=== PATIENT | male | born 1995 | race American Indian/Alaskan Native ===

== ENCOUNTER 2017-05-08 10:01 | Emergency (ER) | payer SELFPAY ==
[2017-05-08 10:36] VITALS: BP 135/76
[2017-05-08 11:13] LABS: Bilirubin,Urine NEG (Negative); Blood,Urine NEG (Negative); Color,Urine Yellow (Yellow); Mucus,Urine FEW /HPF; Nitrite,Urine NEG (Negative); Protein,Urine <15 mg/dL mg/dL (Negative)
[2017-05-08] MEDS ORDERED: ZITHROMAX PO ONE (12:03)
[2017-05-08] MEDS ORDERED: ROCEPHIN IM ONE (12:03)
[2017-05-08] MEDS ORDERED: XYLOCAINE 1% MPF 5 mL INFILTRATI ONE (12:03)
--- NOTE | 2017-05-08 12:03 | Emergency Department Report ---
ED Male HPI - General Chief complaint: Urogenital-Male Stated complaint: ABD PAIN Time Seen by Provider: 05/08/17 11:58 Source: patient Mode of arrival: Ambulatory Limitations: No Limitations - History of Present Illness Initial comments: 21-year-old male past medical history Chlamydia presents with concern for exposure to herpes and possible gonorrhea. Patient awake alert and oriented 3 denies fevers or chills. States that he has had unprotected sex with a female sex partner informed him that he may have been exposed to an STD. Patient states he had tiny open sore on shaft of penis this week. Only had singular lesion. Denies current penile discharge. Onset/Timin -: week(s) Location: penis Improves with: urination Worsens with: none rash - Related Data Sexually active: Yes Previous Rx's Medication Instructions Recorded Last Taken Type HYDROcodone/APAP 10-325 [[place] 1 each PO Q6HR PRN #16 tablet 09/07/13 Unknown Rx 10/325] Promethazine [Phenergan] 25 mg PO Q6H PRN #8 tablet 09/07/13 Unknown Rx Valacyclovir HCl [Valtrex] 1,000 mg PO BID #20 tablet 05/08/17 Unknown Rx Allergies Allergy/AdvReac Type Severity Reaction Status Date / Time No Known Allergies Allergy Verified 05/18/13 11:18 ED Review of Systems ROS: Stated complaint: ABD PAIN Other details as noted in HPI Constitutional: denies: chills, fever Eyes: denies: eye pain, eye discharge, vision change ENT: denies: ear pain, throat pain Respiratory: denies: cough, shortness of breath, wheezing Cardiovascular: denies: chest pain, palpitations Endocrine: no symptoms reported Gastrointestinal: denies: abdominal pain, nausea, diarrhea Genitourinary: as per HPI. denies: urgency, dysuria Musculoskeletal: denies: back pain, joint swelling, arthralgia Skin: denies: rash, lesions Neurological: denies: headache, weakness, paresthesias Psychiatric: denies: anxiety, depression Hematological/Lymphatic: denies: easy bleeding, easy bruising ED Past Medical Hx - Past Medical History Previous Medical History?: No - Surgical History Past Surgical History?: Yes Hx Appendectomy: Yes - Social History Smoking Status: Never Smoker Substance Use Type: Non Opiate Pain - Medications Home Medications: Home Medications Medication Instructions Recorded Confirmed Last Taken Type HYDROcodone/APAP 10-325 [[place] 1 each PO Q6HR PRN #16 tablet 09/07/13 Unknown Rx 10/325] Promethazine [Phenergan] 25 mg PO Q6H PRN #8 tablet 09/07/13 Unknown Rx Valacyclovir HCl [Valtrex] 1,000 mg PO BID #20 tablet 05/08/17 Unknown Rx ED Physical Exam - General Limitations: No Limitations General appearance: alert, in no apparent distress - Head Head exam: Present: atraumatic, normocephalic - Eye Eye exam: Present: normal appearance, PERRL, EOMI - ENT ENT exam: Present: mucous membranes moist - Neck Neck exam: Present: normal inspection - Respiratory Respiratory exam: Present: normal lung sounds bilaterally. Absent: respiratory distress - Cardiovascular Cardiovascular Exam: Present: regular rate, normal rhythm. Absent: systolic murmur, diastolic murmur, rubs, gallop - GI/Abdominal GI/Abdominal exam: Present: soft, normal bowel sounds - Rectal Rectal exam: Present: deferred - Extremities Exam Extremities exam: Present: normal inspection - Back Exam Back exam: Present: normal inspection - Neurological Exam Neurological exam: Present: alert, oriented X3 - Psychiatric Psychiatric exam: Present: normal affect, normal mood - Skin Skin exam: Present: warm, dry, intact, normal color. Absent: rash ED Course Vital Signs 05/08/17 10:33 Temperature 98.6 F Pulse Rate 80 Respiratory 20 Rate Blood Pressure 135/76 O2 Sat by Pulse 98 Oximetry ED Medical Decision Making - Medical Decision Making A/P: Urethritis, possible herpetic lesion on penis 1-patient empirically treated with azithromycin and ceftriaxone 2-GC cultures sent 3-patient given follow-up with primary care 4- empiric course of Valtrex Critical care attestation.: If time is entered above; I have spent that time in minutes in the direct care of this critically ill patient, excluding procedure time. ED Disposition Clinical Impression: STD exposure Disposition: DC-01 TO HOME OR SELFCARE Is pt being admited?: No Does the pt Need Aspirin: No Condition: Stable Instructions: Sexually Transmitted Diseases (ED) Prescriptions: Valacyclovir HCl [Valtrex] 1,000 mg PO BID #20 tablet Referrals: [facility] [Outside] - 3-5 Days [facility] [Outside] - 3-5 Days Forms: Work/School Release Form(ED) Time of Disposition: 12:01
== END 2017-05-08 12:51 | disposition home or self-care (01) ==
LOC: ED 10:01
DX: Z20.2 Contact with and (suspected) exposure to infections with a predominantly sexual mode of transmission (principal); Z90.49 Acquired absence of other specified parts of digestive tract
CPT/HCPCS: 81001; 96372; 99283; J0696

== ENCOUNTER 2021-05-02 16:07 | Emergency (ER) | payer SELFPAY ==
[2021-05-02 18:02] VITALS: BP 140/67
--- NOTE | 2021-05-02 20:15 | Emergency Department Report ---
ED General Adult HPI - General Chief complaint: Medical Clearance Stated complaint: I am fine, I do not really need to be here Time Seen by Provider: 05/02/21 19:37 Source: patient, RN notes reviewed, old records reviewed Mode of arrival: Ambulatory Limitations: No Limitations - History of Present Illness Initial comments: The patient was evaluated in the emergency department for symptoms described in the history of present illness. He/she was evaluated in the context of the global COVID-19 pandemic, which necessitated consideration that the patient might be at risk for infection with the virus that causes COVID-19. Institutional protocols and algorithms that pertain to the evaluation of patients at risk for COVID-19 are in a state of rapid change based on information released by regulatory bodies including the CDC and federal and state organizations. These policies and algorithms were followed during the patient's care in the emergency department. Please note that these policies, procedures and recommendations changed on a rapid basis. The patient is a 25-year-old gentleman, who presents to the ER today with a chief complaint of request for note to go back to work. The patient reports that he was at work a few days ago, and people told him that he might have passed out. The patient does not remember passing out. He denies physical pain. He denies all symptoms. He states "I am fine, I just needs a note to go back to work." The patient denies travel, surgery, immobilization, DVT/PE risk factors. He does not have a local primary care doctor Improves with: none Worsens with: none Associated Symptoms: denies other symptoms - Related Data Previous Rx's Medication Instructions Recorded Last Taken Type HYDROcodone/APAP 10-325 [[place] 1 each PO Q6HR PRN #16 tablet 09/07/13 Unknown Rx 10/325] Promethazine [Phenergan] 25 mg PO Q6H PRN #8 tablet 09/07/13 Unknown Rx Valacyclovir HCl [Valtrex] 1,000 mg PO BID #20 tablet 05/08/17 Unknown Rx Allergies Allergy/AdvReac Type Severity Reaction Status Date / Time No Known Allergies Allergy Verified 05/18/13 11:18 ED Review of Systems ROS: Stated complaint: DEPRESSION Other details as noted in HPI Comment: All other systems reviewed and negative ED Past Medical Hx - Past Medical History Previous Medical History?: No - Surgical History Past Surgical History?: Yes Hx Appendectomy: Yes - Social History Smoking Status: Never Smoker Substance Use Type: Non Opiate Pain - Medications Home Medications: Home Medications Medication Instructions Recorded Confirmed Last Taken Type HYDROcodone/APAP 10-325 [[place] 1 each PO Q6HR PRN #16 tablet 09/07/13 Unknown Rx 10/325] Promethazine [Phenergan] 25 mg PO Q6H PRN #8 tablet 09/07/13 Unknown Rx Valacyclovir HCl [Valtrex] 1,000 mg PO BID #20 tablet 05/08/17 Unknown Rx ED Physical Exam - General Limitations: No Limitations General appearance: alert, in no apparent distress - Head Head exam: Present: atraumatic, normocephalic - Eye Eye exam: Present: normal appearance, EOMI. Absent: nystagmus - ENT ENT exam: Present: normal exam, normal orophraynx, mucous membranes moist, normal external ear exam - Neck Neck exam: Present: normal inspection, full ROM. Absent: tenderness, meningi smus - Respiratory Respiratory exam: Present: normal lung sounds bilaterally. Absent: respiratory distress, wheezes, rales, rhonchi, stridor, decreased breath sounds - Cardiovascular Cardiovascular Exam: Present: regular rate, normal rhythm, normal heart sounds. Absent: bradycardia, tachycardia, irregular rhythm, systolic murmur, diastolic murmur, rubs, gallop - GI/Abdominal GI/Abdominal exam: Present: soft. Absent: distended, tenderness, guarding, rebound, rigid, pulsatile mass - Rectal Rectal exam: Present: deferred - Extremities Exam Extremities exam: Present: normal inspection, full ROM, other (2+ pulses noted in the bilateral upper extremities. There is no long bony tenderness. The muscular compartments are soft). Absent: pedal edema, calf tenderness - Back Exam Back exam: Present: normal inspection, full ROM. Absent: tenderness, CVA tenderness (R), CVA tenderness (L), paraspinal tenderness, vertebral tenderness - Neurological Exam Neurological exam: Present: alert, oriented X3, normal gait, other (No facial droop. Tongue midline. Extraocular movements intact bilaterally. Facial sensation intact to light touch in V1, V2, V3 distribution bilaterally. 5 and a 5 strength in 4 extremities. Sensation intact to light touch in 4 extremities.). Absent: motor sensory deficit - Psychiatric Psychiatric exam: Present: normal affect, normal mood - Skin Skin exam: Present: warm, dry, intact, normal color. Absent: rash ED Course Vital Signs 05/02/21 18:00 Temperature 98.8 F Pulse Rate 83 Respiratory 16 Rate Blood Pressure 140/67 [Left] O2 Sat by Pulse 98 Oximetry ED Medical Decision Making - Lab Data Vital Signs 05/02/21 18:00 Temperature 98.8 F Pulse Rate 83 Respiratory 16 Rate Blood Pressure 140/67 [Left] O2 Sat by Pulse 98 Oximetry - Medical Decision Making Differential diagnosis, including but not limited to: Orthostasis, vagal event, anemia, thyroid derangement, electrolyte derangement, structural cardiac disease, conversion disorder Assessment and plan: 25-year-old gentleman, who presents to the ER today with a primary chief complaint of requesting note for medical clearance to return to work. Patient is advised that the emergency room does not provide notes for clearance to return to work. However, I did recommend an appropriate emergency medical work-up for causes of possible syncope, including appropriate laboratory studies EKG and observation. Patient was advised specifically of the risks of declining the evaluation, including , disability, paralysis, and loss of quality of life. The patient is awake, alert, oriented, sober of sound mind and free from decision-making capacity. He understands the risks of leaving without an appropriate ER work-up, including the aforementioned. The patient reported that he did not want to stay for an appropriate emergency room work-up and evaluation, and left AGAINST MEDICAL ADVICE before his paperwork could be administered/given to him. Critical care attestation.: If time is entered above; I have spent that time in minutes in the direct care of this critically ill patient, excluding procedure time. ED Disposition Clinical Impression: Encounter for medical screening examination Disposition: 07 LEFT AGAINST MEDICAL ADVICE Is pt being admited?: No Does the pt Need Aspirin: No Condition: Undetermined Additional Instructions: As we discussed, you have left the hospital/emergency room AGAINST MEDICAL ADVICE. By leaving, you risked , disability, paralysis, permanent loss of quality of life. The ER is open 24 hours a day, 7 days a week. It never closes. Please return to the emergency room right away if and when you change your mind. If you decide not to return to the emergency room, please follow-up with the listed physician referrals as soon as possible. Referrals: [facility] [Provider Group] - 3-5 Days [facility] [Provider Group] - 3-5 Days
== END 2021-05-02 22:20 | disposition left against medical advice (07) ==
LOC: ED 16:07
DX: Z00.00 Encounter for general adult medical examination without abnormal findings (principal); Z79.899 Other long term (current) drug therapy
CPT/HCPCS: 99282